=== PATIENT | male | born 1945 | race Caucasian/White ===

== ENCOUNTER 2016-10-30 08:37 | Day surgery (SDC) | payer MEDICARE, OTHER ==
[2016-10-30] MEDS ORDERED: PHENYLEPHRINE 2.5% OPHTH 2 ML DROPS ONE (09:31)
[2016-10-30] MEDS ORDERED: CYCLOPENTOLATE 1% OPHTH DROPS 2 ML OPTH ONE (09:55)
[2016-10-30] MEDS ORDERED: PHENYLEPHRINE 2.5% OPHTH 2 ML DROPS OPTH ONE (09:55)
[2016-10-30] MEDS ORDERED: KETOROLAC 0.45% OPHTH DROPS OPTH ONE (09:55)
[2016-10-30] MEDS ORDERED: PROPARACAINE 0.5% OPHTH DROPS 15 ML OPTH ONE ×2 (09:55→10:48)
[2016-10-30] MEDS ORDERED: LACTATED RINGERS 500 ML IV ONE (09:56)
[2016-10-30] MEDS ORDERED: fentaNYL 100 MCG/2 ML VIAL IVP ONE (10:45)
[2016-10-30] MEDS ORDERED: MIDAZOLAM 2 MG/2 ML VIAL IVP ONE (10:45)
[2016-10-30] MEDS ORDERED: BRIMONIDINE 0.2% OPHTH DROPS 5 ML OPTH ONE (10:48)
[2016-10-30] MEDS ORDERED: EPINEPHrine 1 MG/ML AMP IVP ONE (10:48)
[2016-10-30] MEDS ORDERED: BSS/LIDOCAINE/EPINEPHRINE 1 ML SYRINGE IO ONE ×2 (10:48)
[2016-10-30] MEDS ORDERED: CHONDR SULF/HYALURONATE SYRINGE IO ONE (10:48)
[2016-10-30] MEDS ORDERED: TRIAMCIN/MOXIFLOX/VANCO 1 ML VIAL IO ONE ×2 (10:49)
== END 2016-10-30 08:38 | disposition home or self-care (01) ==
PROC: 08RJ3JZ Replacement of Right Lens with Synthetic Substitute, Percutaneous Approach (ICD-10-PCS; principal; 2016-10-30 10:00)
DX: H25.811 Combined forms of age-related cataract, right eye (principal); Z87.891 Personal history of nicotine dependence
CPT/HCPCS: 66984; A9270; V2632

== ENCOUNTER 2016-12-04 09:40 | Day surgery (SDC) | payer MEDICARE, OTHER ==
[~2016-12-04 09:40] MED LIST: MIDAZOLAM 2 MG/2 ML VIAL IVP ONE; PHENYLEPHRINE 2.5% OPHTH 2 ML DROPS ONE
[2016-12-04] MEDS ORDERED: KETOROLAC 0.45% OPHTH DROPS OPTH ONE (10:08)
[2016-12-04] MEDS ORDERED: PROPARACAINE 0.5% OPHTH DROPS 15 ML OPTH ONE ×2 (10:08→11:29)
[2016-12-04] MEDS ORDERED: CYCLOPENTOLATE 1% OPHTH DROPS 2 ML OPTH ONE (10:08)
[2016-12-04] MEDS ORDERED: PHENYLEPHRINE 2.5% OPHTH 2 ML DROPS OPTH ONE (10:08)
[2016-12-04] MEDS ORDERED: LACTATED RINGERS 500 ML IV ONE (10:13)
[2016-12-04] MEDS ORDERED: BRIMONIDINE 0.2% OPHTH DROPS 5 ML OPTH ONE (11:28)
[2016-12-04] MEDS ORDERED: EPINEPHrine 1 MG/ML AMP IVP ONE (11:28)
[2016-12-04] MEDS ORDERED: CHONDR SULF/HYALURONATE SYRINGE IO ONE (11:29)
[2016-12-04] MEDS ORDERED: BSS/LIDOCAINE/EPINEPHRINE 1 ML SYRINGE IO ONE ×2 (11:29)
[2016-12-04] MEDS ORDERED: TIMOLOL 0.5% OPHTH DROPS OPTH ONE (11:29)
[2016-12-04] MEDS ORDERED: TRIAMCIN/MOXIFLOX/VANCO 1 ML VIAL IO ONE ×2 (11:30)
== END 2016-12-04 09:41 | disposition home or self-care (01) ==
PROC: 08RK3JZ Replacement of Left Lens with Synthetic Substitute, Percutaneous Approach (ICD-10-PCS; principal; 2016-12-04 11:00)
DX: H25.812 Combined forms of age-related cataract, left eye (principal); Z98.41 Cataract extraction status, right eye; Z83.3 Family history of diabetes mellitus; Z87.891 Personal history of nicotine dependence
CPT/HCPCS: 66984; A9270; V2632

== ENCOUNTER 2019-06-15 08:03 | Outpatient (CLI) | payer MEDICARE, OTHER ==
[2019-06-15 10:29] LABS: BASOPHILS # (AUTO) 0.1 10^3/uL (0.0-0.1); BASOPHILS % (AUTO) 1.4 %; EOSINOPHILS # (AUTO) 0.3 10^3/uL (0.0-0.7); EOSINOPHILS % (AUTO) 5.5 %; HGB - HEMOGLOBIN 13.3 g/dL (14.0-18.0); LYMPHOCYTES # (AUTO) 2.2 10^3/uL (1.5-3.5); LYMPHOCYTES % (AUTO) 35.4 %; MEAN CORPUSCULAR HEMOGLOBIN 27.5 pg (27.0-31.0); MEAN CORPUSCULAR HGB CONC 33.5 g/dL (32.0-36.0); MEAN CORPUSCULAR VOLUME 82.2 fL (80.0-94.0); MEAN PLATELET VOLUME 12.5 fL (7.4-11.4); MONOCYTES # (AUTO) 0.7 10^3/uL (0.0-1.0); MONOCYTES % (AUTO) 11.4 %; NEUTROPHILS # (AUTO) 2.9 10^3/uL (1.5-6.6); PLT - PLATELET COUNT 204 10^3/uL (130-450); RED BLOOD COUNT 4.83 10^6/uL (4.70-6.10); RED CELL DISTRIBUTION WIDTH 15.6 % (12.0-15.0); WHITE BLOOD COUNT 6.2 x10^3/uL (4.8-10.8)
[2019-06-15 17:07] LABS: ALBUMIN 3.9 g/dL (3.2-5.5); ALBUMIN/GLOBULIN RATIO 1.4 (1.0-2.2); ALKALINE PHOSPHATASE 75 IU/L (42-121); ALT ALANINE AMINOTRANSFERASE 20 IU/L (10-60); AST ASPARTATE AMINOTRANSFERASE 23 IU/L (10-42); BILIRUBIN,TOTAL 0.4 mg/dL (0.2-1.0); BUN - BLOOD UREA NITROGEN 16 mg/dL (6-20); CALCIUM 9.1 mg/dL (8.5-10.3); CARBON DIOXIDE - CO2 23 mmol/L (21-32); CHLORIDE 107 mmol/L (101-111); CHOL/HDL RATIO 3.5 (<5.0); CHOLESTEROL 239 mg/dL; CREATININE 1.1 mg/dL (0.6-1.2); GFR - MDRD 66 (>89); GLUCOSE 101 mg/dL (70-100); HDL CHOLESTEROL 69 mg/dL; LDL CHOLESTEROL,CALCULATED 156 mg/dL; LDL/HDL RATIO 2.3 (<3.6); SODIUM 136 mmol/L (135-145); TOTAL PROTEIN 6.6 g/dL (6.7-8.2); VLDL CHOLESTEROL 14 mg/dL
[2019-06-15 17:29] LABS: HB2 TOTAL 13.2 g/dL; HEMOGLOBIN A1C 0.49 g/dL; HEMOGLOBIN A1C % 5.5 % (4.6-6.2)
== END 2019-06-15 08:04 | disposition home or self-care (01) ==
LOC: LAB.S 08:03
PROVIDERS: ATTEND Registered Nurse
DX: I10 Essential (primary) hypertension (principal)
CPT/HCPCS: 36415; 80053; 80061; 83036; 83721; 84443; 85025

== ENCOUNTER 2021-10-18 08:00 | Outpatient (CLI) | payer MEDICARE, OTHER ==
--- NOTE | 2021-10-18 15:53 | XRAY Report ---
PROCEDURE: Shoulder 3 View LT INDICATIONS: LEFT SHOULDER PAIN TECHNIQUE: 3 views of the shoulder were acquired. COMPARISON: None. FINDINGS: Bones: No fractures or dislocations. Moderate acromioclavicular joint and glenohumeral joint osteoar thritic changes are seen. No suspicious bony lesions. Visualized ribs appear intact. Soft tissues: No suspicious soft tissue calcifications. IMPRESSION: Moderate left shoulder joint osteoarthritis. No fracture or dislocation. No gross soft t issue abnormality. Reviewed by: Bobby Matthews MD on 10/18/2021 3:52 PM PDT Approved by: Bobby Matthews MD on 10/18/2021 3:52 PM PDT Station ID: [id number]
== END 2021-10-18 23:59 | disposition home or self-care (01) ==
LOC: DI.S 08:00
PROVIDERS: ATTEND Physician Assistant
DX: M19.012 Primary osteoarthritis, left shoulder (principal)

== ENCOUNTER 2022-04-18 07:58 | Outpatient (CLI) | payer MEDICARE, OTHER ==
[2022-04-18 14:24] LABS: BASOPHILS # (AUTO) 0.1 10^3/uL (0.0-0.1); BASOPHILS % (AUTO) 0.7 %; EOSINOPHILS # (AUTO) 0.3 10^3/uL (0.0-0.7); EOSINOPHILS % (AUTO) 3.6 %; HCT - HEMATOCRIT 40.9 % (42.0-52.0); HGB - HEMOGLOBIN 13.4 g/dL (14.0-18.0); LYMPHOCYTES # (AUTO) 1.7 10^3/uL (1.5-3.5); LYMPHOCYTES % (AUTO) 23.7 %; MEAN CORPUSCULAR HEMOGLOBIN 26.2 pg (27.0-31.0); MEAN CORPUSCULAR HGB CONC 32.8 g/dL (32.0-36.0); MEAN CORPUSCULAR VOLUME 79.9 fL (80.0-94.0); MEAN PLATELET VOLUME 12.2 fL (7.4-11.4); MONOCYTES % (AUTO) 13.1 %; NEUTROPHILS # (AUTO) 4.2 10^3/uL (1.5-6.6); NEUTROPHILS % (AUTO) 58.3 %; PLT - PLATELET COUNT 184 10^3/uL (130-450); RED BLOOD COUNT 5.12 10^6/uL (4.70-6.10); RED CELL DISTRIBUTION WIDTH 14.7 % (12.0-15.0); WHITE BLOOD COUNT 7.3 x10^3/uL (4.8-10.8)
[2022-04-18 14:51] LABS: ALBUMIN 4.1 g/dL (3.2-5.5); ALBUMIN/GLOBULIN RATIO 1.2 (1.0-2.2); BILIRUBIN,TOTAL 1.2 mg/dL (0.2-1.0); CALCIUM 9.4 mg/dL (8.5-10.3); POTASSIUM 4.3 mmol/L (3.5-5.0); TOTAL PROTEIN 7.4 g/dL (6.7-8.2)
[2022-04-18 20:43] LABS: ESTIMATED AVERAGE GLUCOSE 117 mg/dL (70-100); HEMOGLOBIN A1c% 5.7 % (4.27-6.07)
== END 2022-04-18 07:59 | disposition home or self-care (01) ==
LOC: LAB.S 07:58
PROVIDERS: ATTEND Registered Nurse
DX: Z01.812 Encounter for preprocedural laboratory examination (principal); I10 Essential (primary) hypertension
CPT/HCPCS: 36415; 80053; 83036; 85025

== ENCOUNTER 2022-10-21 08:51 | Outpatient (CLI) | payer MEDICARE, OTHER ==
--- NOTE | 2022-10-21 10:58 | XRAY Report ---
PROCEDURE: Chest 2 View X-Ray INDICATIONS: EXERTIONAL SHORTNESS OF BREATH TECHNIQUE: 2 views of the chest were acquired. COMPARISON: None. FINDINGS: Surgical changes and devices: None. Lungs and pleura: There is a central perihilar obstructing mass in the right lung with complete colla pse of the right upper lobe. The mass measures approximately 3.5 cm in diameter. Mediastinum: Probable subcarinal adenopathy. Heart size is normal. Bones and chest wall: No suspicious bony abnormalities. Soft tissues appear unremarkable. IMPRESSION: Findings are highly suspicious for a central obstructing malignancy of the right lung with complete c ollapse of the right upper lobe. There is also probable subcarinal adenopathy. Comment: Recommend CT chest with contrast, as well as referral for bronchoscopic evaluation. Above discussed with Mervat Howell PA-C at the time of dictation on 10/21/2022 at 10:56 AM. Reviewed by: Baldo Newton MD on 10/21/2022 10:56 AM PDT Approved by: Baldo Newton MD on 10/21/2022 10:56 AM PDT Station ID: [id number]
== END 2022-10-21 08:52 | disposition home or self-care (01) ==
LOC: DI.S 08:51
PROVIDERS: ATTEND Physician Assistant Medical
DX: R06.09 Other forms of dyspnea (principal); R07.89 Other chest pain; J98.19 Other pulmonary collapse; R91.8 Other nonspecific abnormal finding of lung field

== ENCOUNTER 2022-12-09 13:19 | Outpatient (CLI) | payer MEDICARE, OTHER ==
[2022-12-09 19:59] LABS: BASOPHILS % (AUTO) 0.4 %; EOSINOPHILS # (AUTO) 0.1 10^3/uL (0.0-0.7); EOSINOPHILS % (AUTO) 1.2 %; HGB - HEMOGLOBIN 11.1 g/dL (14.0-18.0); LYMPHOCYTES # (AUTO) 1.2 10^3/uL (1.5-3.5); LYMPHOCYTES % (AUTO) 12.4 %; MEAN CORPUSCULAR HEMOGLOBIN 25.3 pg (27.0-31.0); MEAN CORPUSCULAR HGB CONC 31.7 g/dL (32.0-36.0); MEAN CORPUSCULAR VOLUME 79.7 fL (80.0-94.0); MEAN PLATELET VOLUME 11.6 fL (7.4-11.4); MONOCYTES # (AUTO) 1.1 10^3/uL (0.0-1.0); MONOCYTES % (AUTO) 11.6 %; NEUTROPHILS # (AUTO) 7.1 10^3/uL (1.5-6.6); NEUTROPHILS % (AUTO) 73.8 %; PLT - PLATELET COUNT 306 10^3/uL (130-450); RED BLOOD COUNT 4.39 10^6/uL (4.70-6.10); RED CELL DISTRIBUTION WIDTH 15.4 % (12.0-15.0); WHITE BLOOD COUNT 9.6 x10^3/uL (4.8-10.8)
[2022-12-09 20:08] LABS: ALBUMIN 3.2 g/dL (3.2-5.5); ALBUMIN/GLOBULIN RATIO 0.9 (1.0-2.2); BILIRUBIN,TOTAL 0.6 mg/dL (0.2-1.0); CALCIUM 8.7 mg/dL (8.5-10.3); CREATININE 0.8 mg/dL (0.6-1.2); POTASSIUM 3.6 mmol/L (3.5-5.0); TOTAL PROTEIN 6.6 g/dL (6.7-8.2)
== END 2022-12-09 13:20 | disposition home or self-care (01) ==
LOC: LAB.S 13:19
PROVIDERS: ATTEND Registered Nurse
DX: I10 Essential (primary) hypertension (principal)
CPT/HCPCS: 36415; 80053; 85025

== ENCOUNTER 2022-12-18 17:15 | Outpatient (CLI) | payer MEDICARE, OTHER ==
[~2022-12-18 17:15] MED LIST changes: +GADOBUTROL 7.5 MMOL/7.5 ML VIAL ONE; -MIDAZOLAM 2 MG/2 ML VIAL IVP ONE; -PHENYLEPHRINE 2.5% OPHTH 2 ML DROPS ONE
[2022-12-18] MEDS ORDERED: GADOBUTROL 7.5 MMOL/7.5 ML VIAL IVP ONE (18:45)
--- NOTE | 2022-12-19 09:51 | MRI Report ---
PROCEDURE: BRAIN W/WO INDICATIONS: HEADACHE, LUNG CA CONTRAST: GADAVIST 7.5 ML TECHNIQUE: Noncontrast axial T1 spin echo, axial T2 fast spin echo, sagittal and axial FLAIR, coronal T2 fast sp in echo, axial gradient echo, axial diffusion and ADC through the brain. After the administration of contrast, axial and coronal T1 spin echo with fat saturation through the brain. COMPARISON: None. FINDINGS: Image quality: Excellent. CSF spaces: Basal cisterns are patent. No extra-axial fluid collections. Ventricles are normal in size and shape. Brain: There is an enhancing lesion within the posterior right frontal lobe measuring 1.9 x 2.3 x 2. 1 cm. There is prominent vasogenic edema causing marked effacement of the posterior right temporal ho rn as well as 4 mm right to left midline shift. No additional enhancing lesions are identified. There is cerebral volume loss for age. There is periventricular white matter chronic small vessel is chemic change. The brainstem appears normal. Diffusion-weighted images demonstrate no acute ischemi c insults. No chronic ischemic insults. Normal intravascular flow voids are present. Skull and face: Calvarial marrow is normal in signal. Orbits appear normal. Sinuses: Sinuses and mastoids appear clear. IMPRESSION: Enhancing right posterior frontal lesion with vasogenic edema and mild midline shift. Given history o f lung cancer, overall appearance is most suggestive metastatic disease. Moderate atrophy and chronic microvascular ischemic changes. The above findings were discussed with Cheryl Duque RN on 12/19/2022 and 9:45 AM, as Dr. Perez was not immediately available for consultation. Message will be given to Dr. Perez as well as oncology. Reviewed by: Tracy Cardozo MD on 12/19/2022 9:49 AM PDT Approved by: Tracy Cardozo MD on 12/19/2022 9:49 AM PDT Station ID: [id number]
== END 2022-12-18 17:16 | disposition home or self-care (01) ==
LOC: DI 17:15
PROVIDERS: ATTEND Internal Medicine
DX: G93.9 Disorder of brain, unspecified (principal); G31.9 Degenerative disease of nervous system, unspecified; I67.82 Cerebral ischemia; C34.90 Malignant neoplasm of unspecified part of unspecified bronchus or lung
CPT/HCPCS: 70553; A9585